=== PATIENT | female | born 1950 | race Two or more races ===

== ENCOUNTER 2017-01-28 09:25 | Inpatient (IN) | payer MEDICAID ==
[2017-01-23 11:05] LABS: BASOPHILS % (AUTO) 1.7 % (0.0-2.0); EOSINOPHILS % (AUTO) 1.7 % (0.0-3.0); LYMPHOCYTES % (AUTO) 42.3 % (20.0-45.0); MEAN CORPUSCULAR HEMOGLOBIN 31.7 PG (27.0-31.0); MEAN CORPUSCULAR HGB CONC 34.4 G/DL (32.0-36.0); MEAN CORPUSCULAR VOLUME 92 FL (80-99); MEAN PLATELET VOLUME 7.1 FL (6.5-10.1); MONOCYTES % (AUTO) 12.6 % (1.0-10.0); NEUTROPHILS % (AUTO) 41.7 % (45.0-75.0); PLATELET COUNT 224 K/UL (150-450); RED BLOOD COUNT 4.67 M/UL (4.20-5.40); RED CELL DISTRIBUTION WIDTH 11.5 % (11.6-14.8); WHITE BLOOD COUNT 3.8 K/UL (4.8-10.8)
[2017-01-23 11:14] LABS: PROTHROMBIN TIME 10.6 SEC (9.30-11.50)
[2017-01-23 11:19] LABS: ALANINE AMINOTRANSFERASE 22 U/L (3-33); ALBUMIN/GLOBULIN RATIO 1.5 (1.0-2.7); ANION GAP 11 (5-15); ASPARTATE AMINO TRANSFERASE 25 U/L (5-40); CALCIUM 9.1 mg/dL (8.6-10.2); CARBON DIOXIDE 27 mEQ/L (20-30); CHLORIDE 104 mEQ/L (98-107); CREATININE 0.8 mg/dL (0.5-0.9); GLOMERULAR FILTRATION RATE > 60 mL/min (>60); HEMOLYSIS 10; POTASSIUM 3.9 mEQ/L (3.4-4.9); SODIUM 142 mEQ/L (135-145); TOTAL PROTEIN 7.5 g/dL (6.6-8.7)
--- NOTE | 2017-01-23 12:54 | Diagnostic Imaging Report ---
Indication: Dyspnea Comparison: None 2 views of the chest obtained. Findings: The lungs are clear. Heart is normal in size. Bones are slightly osteopenic. Impression: No acute disease
--- NOTE | 2017-01-26 17:59 | Cardiology Report ---
APPROVED REPORT EKG Measurement Heart [id number] Normal sinus rhythm Normal ECG
[2017-01-28] VITALS (11 sets, daily range): BP systolic 125–177; BP diastolic 73–94
[~2017-01-28] VITALS: Ht 167.6 cm; Wt 77.1 kg
[~2017-01-28 09:25] MED LIST: Vancomycin 1 GM in D5W 275 ML IVPB ONE
--- NOTE | 2017-01-28 10:01 | Pre-Procedure Note/Attestation ---
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 I attest that, if there was a reasonable possibility of needing a blood transfusion, the patient (or the patient's legal electroplating sales representative) was given the [facility] standardized written summary, pursuant to the [place] Blood Safety Act ([place] Health and Safety Code # 1645, as amended). I attest that I re-evaluated the patient just prior to the surgery and that there has been no change in the patient's H&P, except as documented below:none INGE MARQUEZ Jan 28, 2017 10:01
[2017-01-28] MEDS ORDERED: NORVASC10 MG ORAL (10:06)
[2017-01-28] MEDS ORDERED: Bupivacaine w/Epi 0.5% 30ml Vial INJ ONE (10:41)
--- NOTE | 2017-01-28 11:30 | Anethesia Preoperative Eval ---
Anesthesia Pre-op PMH/ROS General Date of Evaluation: Jan 28, 2017 Anesthesiologist: Palmer ASA Score: ASA 3 Mallampati Score Class I : Soft palate, uvula, fauces, pillars visible Class II: Soft palate, uvula, fauces visible Class III: Soft palate, base of uvula visible Class IV: Only hard plate visible Mallampati Classification: Class II Surgeon: Iban Diagnosis: Left breast cancer Surgical Procedure: Left breast partial mastectomy Anesthesia History: none Family History: no anesthesia problems Allergies: Coded Allergies: No Known Allergies (Unverified , 01/27/17) Medications: see eMAR Past Medical History Cardiovascular: Reports: HTN, Denies: CAD, NV, arrhythmia, other, valve dz Pulmonary: Denies: COPD, MOISÉS, asthma, other Gastrointestinal/Genitourinary: Reports: other - left breast cancer, Denies: CRI, ESRD, GERD Neurologic/Psychiatric: Denies: CVA, TIA, dementia, depression/anxiety, other Endocrine: Denies: DM, hypothyroidism, other, steroids HEENT: Denies: TAKOTNA (L), TAKOTNA (R), cataract (L), cataract (R), glaucoma, other Hematology/Immune: Denies: DVT, anemia, bleeding disorder, other Musculoskeletal/Integumentary: Reports: OA, Denies: DDD, DJD, RA, edema, other PSxH Narrative: Denies Anesthesia Pre-op Phys. Exam Physician Exam Last Vital Signs Date Time Temp Pulse Resp B/P Pulse Ox O2 Delivery O2 Flow Rate FiO2 01/28/17 09:50 97.0 64 18 129/76 98 Room Air Constitutional: NAD Cardiovascular: RRR Respiratory: CTA Airway Exam Mallampati Score: Class II MO: full ROM: full Teeth: intact Anesthesia Pre-op A/P Labs see chart Studies Pre-op Studies: EKG - sr Risk Assessment & Plan Assessment: ASa III Plan: GA Status Change Before Surgery: No Pre-Antibiotics Drug: Ancef 1g Given Within 1 Hr of Incision: ABIGAIL Glynn M.D. Jan 28, 2017 11:30
[2017-01-28] MEDS ORDERED: Propofol 10mg/ml 20ml IV ONE (13:14)
[2017-01-28] MEDS ORDERED: Metoclopramide 10mg/2ml Inj ONE (13:30)
[2017-01-28] MEDS ORDERED: Sterile Water Irrig 1000ml IRRIG ONE (13:30)
[2017-01-28] MEDS ORDERED: LR 1000ml ONE (13:30)
[2017-01-28] MEDS ORDERED: NS Irrig 1000ml ONE (13:30)
[2017-01-28] MEDS ORDERED: Midazolam 2mg/2ml Inj ONE (13:30)
[2017-01-28] MEDS ORDERED: Lidocaine 1% MPF 10mg/ml 5ml ONE (13:30)
[2017-01-28] MEDS ORDERED: Zemuron 50mg/5ml Inj IV ONE (13:30)
[2017-01-28] MEDS ORDERED: fentaNYL 250mcg/5ml ONE (13:30)
[2017-01-28] MEDS ORDERED: Vancomycin 1gm inj IVPB ONE (13:46)
[2017-01-28] MEDS ORDERED: LR 1000ml 1,000 ML IVLG SCH (13:57)
--- NOTE | 2017-01-28 13:57 | Immediate Post-Op Evaluation ---
Immediate Post-Op Evalulation Immediate Post-Op Evalulation Procedure: Left partial breast mastectomy Date of Evaluation: Jan 28, 2017 Time of Evaluation: 14:42 IV Fluids: 500 Blood Products: 0 Estimated Blood Loss: 5 Urinary Output: 0 Blood Pressure Systolic: 167 Blood Pressure Diastolic: 94 Pulse Rate: 99 Respiratory Rate: 18 O2 Sat by Pulse Oximetry: 99 Temperature (Fahrenheit): 98.5 Pain Score (1-10): 0 Nausea: No Vomiting: No Complications 0 Patient Status: awake, reacts, patent, none Hydration Status: adequate Drug: Vancomycin 1g Given Within 1 Hr of Incision: Yes Time Given: 13:45 ABIGAIL KEMP M.D. Jan 28, 2017 13:57
--- NOTE | 2017-01-28 13:57 | 48 Hour Post Anesthesia Eval ---
Post Anesthesia Evaluation Procedure: Left partial breast mastectomy Date of Evaluation: Jan 28, 2017 Airway: patent Nausea: No Vomiting: No Pain Intensity: 0 Hydration Status: adequate Cardiopulmonary Status: at baseline Mental Status/LOC: patient returned to baseline Post-Anesthesia Complications: 0 Follow-up care needed: ready to discharge ABIGAIL KEMP M.D. Jan 28, 2017 13:57
[2017-01-28] MEDS ORDERED: Hydromorphone 0.5mg/0.5ml inj IVP PRN (14:00)
[2017-01-28] MEDS ORDERED: Ketorolac 30mg Inj IV PRN (14:00)
[2017-01-28] MEDS ORDERED: Midazolam 2mg/2ml Inj IVP PRN (14:00)
[2017-01-28] MEDS ORDERED: Metoclopramide 10mg/2ml Inj IVP PRN (14:00)
[2017-01-28] MEDS ORDERED: fentaNYL 100 mcg/2 mL IV PRN (14:00)
[2017-01-28] MEDS ORDERED: DiphenhydrAMINE 50mg/ml Inj IVP PRN (14:00)
--- NOTE | 2017-01-28 14:34 | Brief Operative Note ---
Immediate Post Operative Note Operative Note Pre-op Diagnosis: ductal carcinoma in situ left breast Procedure: left breast partial mastectomy with pre-operative needle localization Post-op Diagnosis: same Post-op Diagnosis: same as pre-op Findings: consistent w/pre-op dx studies Surgeon: stacey Director Group Sales: kathleen Anesthesiologist: samir Anesthesia: general Specimen: yes - partial mastectomy Complications: none Condition: stable Estimated Blood Loss: none Drains: none Implant(s) used?: No INGE MARQUEZ Jan 28, 2017 14:34
[2017-01-28] MEDS ORDERED: Tylenol #3 tab (300mg/30mg) ORAL PRN (20:01)
[2017-01-28] MEDS ORDERED: Norco 5mg/325mg tab ORAL PRN (20:01)
[2017-01-28] MEDS ORDERED: D5 1/2NS 1,000 ML IV SCH (20:01)
--- NOTE | 2017-01-29 02:45 | Operative Note - Dictated ---
DATE OF OPERATION: 01/28/2017 SURGEON: Ivan Ferrera M.D. COMMERCIAL REAL ESTATE ATTORNEY SURGEON: Franko Bourgeois M.D. ANESTHESIOLOGIST: Dr. Chakraborty. TYPE OF ANESTHESIA: General. PREOPERATIVE DIAGNOSIS: Ductal carcinoma in situ, left breast. POSTOPERATIVE DIAGNOSIS: Ductal carcinoma in situ, left breast. OPERATION PERFORMED: Left breast partial mastectomy with preoperative needle localization. DESCRIPTION OF PROCEDURE: The patient was taken to the operating room and under general anesthesia with sequential compression device stockings in place, she was prepped and draped in the usual fashion. The wire localization was in the upper outer breast with the lesion just superior and deep to the nipple. A transverse curvilinear incision was made, achieved hemostasis with cautery. Flaps were dissected circumferentially. The incision was deepened through the breast tissue to the chest wall and then the entire sector was excised with cautery after orienting it with medial, superior, and anterior suture markers for the pathologist. Specimen radiography confirmed the presence of the lesion within the tissue. Hemostasis was carefully achieved with cautery and the field irrigated with saline. The incision was closed with interrupted inverted 3-0 Vicryl subcutaneous deep dermal sutures followed by continuous 4-0 Monocryl subcuticular suture. Tincture of benzoin and half-inch Steri-Strips were applied followed by Telfa, gauze and Tegaderm. Final sponge and needle counts were correct. The patient tolerated the procedure well and left the operating room in good condition. Franko Bourgeois M.D. DR: Trip JOB#: [id number] CC: JUNO
--- NOTE | 2017-02-05 11:50 | Discharge Summary ---
Discharge Summary Hospital Course Date of Admission Jan 28, 2017 at 09:25 Date of Discharge Jan 28, 2017 at 17:10 Admitting Diagnosis Ductal carcinoma in situ, left breast. Reason for Hospitalization: elective surgery FARA Marshall is a 66 year old female who was admitted on Jan 28, 2017 at 09: 25 for ductal carcinoma in situ, left breast for elective surgery: left breast partial mastectomy Procedures s/p 01/28/[address] Bourgeois Left breast partial mastectomy with preoperative needle localization. Hospital Course s/p surgery course of recovery uneventful pain management dressing intact, no evidence of bleeding ambulated voided pathology + ductal carcinoma in situ, Grade 3 stable for dc fup as outpatient with surgeon and oncologist FINAL DIAGNOSIS Ductal carcinoma in situ, left breast. s/p Left breast partial mastectomy Discharge Condition Upon Discharge: stable Discharge Disposition Patient was discharged home Discharge Diagnoses: Discharge Instructions Discharge Instructions Special Instructions I have been assigned to complete a D/C Summary on this account. I was not involved in the patient management Christine Quinones NP (Vanchtein) Feb 05, 2017 11:50
== END 2017-01-28 17:10 | disposition home or self-care (01) | DRG 363 ==
LOC: SDSOVERFLO 09:25
PROC: 0HBU0ZZ Excision of Left Breast, Open Approach (ICD-10-PCS; principal; 2017-01-28 13:00)
DX: D05.12 Intraductal carcinoma in situ of left breast (principal); I10 Essential (primary) hypertension; E07.9 Disorder of thyroid, unspecified
CPT/HCPCS: 36415; 71020; 80053; 85025; 85610; 85730; 86850; 86900; 86901; 87081; 93005; 94003; 94150; J2250; J2405; J2765